=== PATIENT | male | born 1940 | race Caucasian/White ===

== ENCOUNTER 2021-10-22 07:49 | Day surgery (SDC) | payer OTHER ==
[~2021-10-22 07:49] MED LIST: CLINDAMYCIN INJ 900 MG in NA CHLORIDE 0.9% 50 ML IV ONE
[2021-10-22] MEDS ORDERED: Ringers Lactate 1,000 ML IV ONE (07:57)
[2021-10-22] MEDS ORDERED: BSS OPTHALMIC SOL 15 ML OPTH ONE (08:49)
[2021-10-22] MEDS ORDERED: LIDOCAINE 1% W/EPI 1:100,000 10 ML VIAL ONE (08:49)
[2021-10-22] MEDS ORDERED: CHLORHEXIDINE 0.12% 473ML BOT MM ONE (08:50)
[2021-10-22] MEDS ORDERED: LIDOCAINE JELLY 2%- 5 ML TUBE ONE (09:03)
[2021-10-22] MEDS ORDERED: OXYMETAZOLINE HCL 0.05% 15ML NAS ONE (09:08)
[2021-10-22] MEDS ORDERED: KETOROLAC 30 MG/ML INJ ONE (09:43)
[2021-10-22] MEDS ORDERED: dexAMETHasone 10 MG/ML VIAL ONE (09:43)
[2021-10-22] MEDS ORDERED: ONDANSETRON 4 MG/2 ML VIAL ONE (09:47)
[2021-10-22] MEDS ORDERED: EPHEDRINE SULF 50 MG/ML VIAL ONE (09:50)
[2021-10-22] MEDS ORDERED: NS 0.9% VIAL 10 ML ONE (09:51)
[2021-10-22] MEDS ORDERED: GLYCOPYRROLATE 0.2 MG/ML SYR ONE (10:14)
[2021-10-22] MEDS ORDERED: NEOSTIGMINE 1 MG/ML -10 ML VIAL ONE (10:15)
[2021-10-22] MEDS ORDERED: BACITRACIN OINTMENT 14 GM TUBE TOP ONE (10:57)
[2021-10-22 14:02] VITALS: BP 147/66; TEMP 96.8; O2SAT 97
--- NOTE | 2021-10-22 23:00 | OP ---
Date of Procedure: 10/22/2021 Surgeon: JENNY SOLOMON Preoperative Diagnoses: 1.Lower lip defect. 2.History of squamous cell carcinoma of lower lip. Postoperative Diagnoses: 1.Lower lip defect. 2.History of squamous cell carcinoma of lower lip. Procedures: 1.Full thickness excision of lower lip wound. 2.Complex closure of lip (full thickness measuring greater than two thirds vertical height). Anesthesia: General. Iv Fluids: 500. Ebl: 25. Urine Output: Not recorded. Indications: Mr. Yates is an 81-year-old male with history of multiple cutaneous cancers. 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 He underwe nt Mohs excision of the defect resulting in a partial thickness 40% defect of the lower lip encompass ing the dry vermilion as well as partial thickness orbicularis brittney. We discussed reconstruction of said defect. We discussed various options for closure, but ultimately the decision would have to be made intraoperatively based on soft tissue compliance. However, we discussed a completion full thick ness excision of 40% of his lower lip and primary closure. This would allow for the most aesthetic r esult as well as functional repair. He was made well aware of the risks and benefits of the procedur e including, but not limited to bleeding, infection, injury to surrounding structures, scarring, asym metry, overcorrection, undercorrection, functional imbalance, and need for additional procedures. Af ter thorough discussion of the risks and benefits, the patient was deemed an appropriate surgical can didate. Procedure In Detail: After written consent, the patient was marked in the preoperative holding area. He was then taken to the operating room. Pressure points were padded. SCDs were turned on. The p atient was then nasotracheally intubated. The bed was turned 90 degrees. The mouth and teeth were b rushed with Peridex and the wound cleaned with saline. The face was then prepped and draped in the u sual fashion. The lower lip defect was measured. It was approximately 5 cm in width involving the d ry and wet vermilion as well as partial thickness orbicularis brittney. The lower lip vertical complianc e was assessed. He had a relatively wide and long lip and based on soft tissue approximation there w as enough length in my opinion to accommodate a complete excision and closure. Thus the decision was made at that point to proceed with a wedge excision. The wedge was marked on the cutaneous and muco alessandro surfaces and local was then infiltrated into the excision sites as well as mental nerve blocks. After approximately 10 minutes had elapsed, the premarked segment was excised full thickness with car e to electrocauterize the inferior labial artery. After hemostasis was achieved, it was then irrigat ed. It was then closed in layers, the mucosa was closed first with 4-0 Vicryl up to the wet-dry junc tion. Then the orbicularis brittney was undermined 2 cm on each surface to allow for adequate muscle bit es. This was accomplished with 3-0 Monocryl along the whole vertical length of the orbicularis brittney. Next, the cutaneous skin was aligned with 3-0 Monocryl and a small standing cone was excised in the submental crease. Next, the white wall was aligned. There was a small dry vermilion irregularity, which was trimmed to allow for even soft tissue approximation. The dry vermilion was approximated wi th 5-0 Vicryl and the cutaneous skin was closed with interrupted 5-0 Prolene. He was then cleaned an d dried. The throat pack was then removed. The patient tolerated the procedure well. All instrumen t counts and laparotomy pads were accounted for by the end of the procedure. Complications: None. Disposition: To PACU then home. He will be seen in 5 days in my office. ACE Voice ID: [id number] Report ID: [id number]
== END 2021-10-22 12:23 | disposition home or self-care (01) ==
LOC: OR 07:49
PROVIDERS: ATTEND Plastic Surgery
PROC: 0JB10ZZ Excision of Face Subcutaneous Tissue and Fascia, Open Approach (ICD-10-PCS; principal; 2021-10-22 09:00)
DX: S01.501A Unspecified open wound of lip, initial encounter (principal); I10 Essential (primary) hypertension; Z20.822 Contact with and (suspected) exposure to COVID-19; Z85.828 Personal history of other malignant neoplasm of skin; Z85.819 Personal history of malignant neoplasm of unspecified site of lip, oral cavity, and pharynx
CPT/HCPCS: 40530; U0003; J2710; J1100; J7120; J2405

== ENCOUNTER → 2023-09-11 | Emergency (ER) | payer OTHER ==
[~2023-09-11] MED LIST changes: -CLINDAMYCIN INJ 900 MG in NA CHLORIDE 0.9% 50 ML IV ONE; +NA CHLORIDE 0.9% 1,000 ML ONE
--- NOTE | 2023-09-11 12:28 | RAD REPORT ---
EXAM DESCRIPTION: CT - Head Brain Wo Cont - 09/11/2023 12:11 pm CLINICAL HISTORY: LE weakness, fatigue Headache, drowsiness COMPARISON: No comparisons TECHNIQUE: All CT scans are performed using dose optimization technique as appropriate and may inclu de automated exposure control or mA/KV adjustment according to patient size. FINDINGS: No intracranial hemorrhage, hydrocephalus or extra-axial fluid collection.Moderate diffuse brain atrophy present.No areas of brain edema or evidence of midline shift. The paranasal sinuses and mastoids are clear the for trace fluid in the right maxillary antrum. The c alvarium is intact. Right-sided phthisis bulbi. IMPRESSION: No acute intracranial abnormality.
--- NOTE | 2023-09-11 12:38 | RAD REPORT ---
EXAM DESCRIPTION: Brenda Single View09/11/2023 12:29 pm CLINICAL HISTORY: cough COMPARISON: 2020 FINDINGS: The lungs appear clear of acute infiltrate. The heart is mildly enlarged IMPRESSION: No acute abnormalities displayed
[2023-09-11 12:55] LABS: Absolute Lymphocytes (CBC) 0.9 K/uL (0.7-4.9); Absolute Neutrophil 2.4 K/uL (1.8-8.0); Basophils % 0.6 % (0-1.3); Eosinophils % 0.5 % (0-4.4); Hematocrit 41.1 % (39.6-49.0); Lymphocytes % 21.3 % (15.3-44.8); MCH 31.9 pg (27.0-35.0); MCHC 34.1 g/dL (32.0-36.0); MCV 93.6 fL (80-100); MPV 7.6 fL (7.6-11.3); Monocytes % 22.7 % (3.3-12.3); Neutrophils % 54.9 % (41.7-73.7); Nucleated Red Blood Cells % 0.2 % (0-0); Platelets 109 thou/uL (152-406); RBC Red Blood Cell Count 4.39 M/uL (4.33-5.43); Red Cell Distribution Width 13.8 % (12.1-15.2)
[2023-09-11 12:57] LABS: PT Prothrombin Time 13.3 SECONDS (9.5-12.5); Protime INR 1.22
[2023-09-11 13:00] LABS: Albumin 3.4 g/dL (3.4-5.0); Albumin/Globulin Ratio 0.9 (1.1-1.8); Anion Gap 10.9 mEq/L (5.0-15.0); Bilirubin Direct 0.4 mg/dL (0-0.2); Bilirubin Indirect, Calculated 0.9 mg/dL (0.2-0.8); Bilirubin Total 1.3 mg/dL (0.2-1.0); Globulin 3.8 g/dL (2.3-3.5); Magnesium 2.1 mg/dL (1.6-2.4); Potassium 3.9 mEq/L (3.5-5.1); Protein, Total 7.2 g/dL (6.4-8.2)
[2023-09-11 13:30] LABS: Specific Gravity 1.018 (1.005-1.030); Sqamous Epithelial None Seen /HPF (None Seen); Urine Bacteria <20 /HPF (<20); Urine Bilirubin NEGATIVE (Negative); Urine Blood Negative (Negative); Urine Clarity Turbid (Clear); Urine Color Yellow (Yellow); Urine Culture Reflex Order NOT NEEDED; Urine Glucose NEGATIVE (Negative); Urine Ketones TRACE (Negative); Urine Micro Reflex YN NO BILL MICROSCOPIC; Urine Mucus 2+ /HPF (None Seen); Urine Nitrite NEGATIVE (Negative); Urine Protein TRACE (Negative); Urine RBC <5 /HPF (None Seen); Urine Urobilinogen Normal (Normal); Urine WBC <5 /HPF (<5)
[2023-09-11 13:47] LABS: Blood Morphology Comment NOT SEEN (NOT SEEN); Platelet Estimate ADEQ; White Blood Cell Scan OK (OK)
--- NOTE | 2023-09-11 14:08 | EDPHYS ---
Physician Documentation [facility] Name: Xavier Yates Age: 83 yrs Sex: Male : 1940 Arrival Date: 09/11/2023 Time: 11:06 Bed 7 Private MD: ED Physician Yocasta Mcmillan HPI: 09/10 12:16 This 83 yrs old Male presents to ER via Ambulatory with complaints of lower leg sp3 weakness, cough and fatigue. 12:16 83-year-old male with a history of hypertension, hearing loss now presents to the ED sp3 with chief complaint generalized weakness with lower extremity weakness bilaterally requiring a cane for ambulation and dry cough for 3 to 4 days. Patient states he has been weak and decreased urine output and decreased p.o. intake. He denies any fever, headache, chest pain, back pain, dysuria, vomiting or diarrhea, or any other signs or symptoms on ROS at this time.. 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 - Social history:: Smoking status: Patient denies any tobacco usage or history of. ROS: 12:17 Constitutional: Negative for fever, chills, and weight loss, Eyes: Negative for injury, sp3 pain, redness, and discharge, Neck: Negative for injury, pain, and swelling, Cardiovascular: Negative for chest pain, palpitations, and edema, Abdomen/GI: Negative for abdominal pain, nausea, vomiting, diarrhea, and constipation, : Negative for injury, bleeding, discharge, and swelling, MS/Extremity: Negative for injury and deformity, Skin: Negative for injury, rash, and discoloration, Allergy/Immunology: Negative for hives, rash, and allergies, Endocrine: Negative for neck swelling, polydipsia, polyuria, polyphagia, and marked weight changes, Hematologic/Lymphatic: Negative for swollen nodes, abnormal bleeding, and unusual bruising, 12:17 All other systems are negative, Exam: 12:17 Constitutional: This is a well developed, well nourished patient who is awake, alert, sp3 and in no acute distress. Head/Face: Normocephalic, atraumatic. Eyes: Pupils equal round and reactive to light, extra-ocular motions intact. Lids and lashes normal. Conjunctiva and sclera are non-icteric and not injected. Cornea within normal limits. Periorbital areas with no swelling, redness, or edema. ENT: Nares patent. No nasal discharge, no septal abnormalities noted. External auditory canals are clear. Oropharynx with no redness, swelling, or masses, exudates, or evidence of obstruction, uvula midline. Mucous membranes moist. Neck: Trachea midline, no thyromegaly or masses palpated, and no cervical lymphadenopathy. Supple, full range of motion without nuchal rigidity, or vertebral point tenderness. No Meningismus. Chest/axilla: Normal chest wall appearance and motion. Nontender with no deformity. No lesions are appreciated. Cardiovascular: Regular rate and rhythm with a normal S1 and S2. No gallops, murmurs, or rubs. Normal PMI, no JVD. No pulse deficits. Abdomen/GI: Soft, non-tender, with normal bowel sounds. No distension or tympany. No guarding or rebound. No evidence of tenderness throughout. Back: No spinal tenderness. No costovertebral tenderness. Full range of motion. Skin: Warm, dry with normal turgor. Normal color with no rashes, no lesions, and no evidence of cellulitis. MS/ Extremity: Pulses equal, no cyanosis. Neurovascular intact. Full, normal range of motion. Psych: Awake, alert, with orientation to person, place and time. Behavior, mood, and affect are within normal limits. 12:17 Respiratory: Mild dry cough noted. No wheezing rales or rhonchi noted., 12:17 Musculoskeletal/extremity: Globally weak without any focal neurological deficits.. 14:19 ECG was reviewed by the Attending Physician. EKG demonstrates normal sinus rhythm at 73 sp3 bpm with normal intervals, normal QRS, slightly leftward axis nonspecific diffuse ST's ST changes without evidence of acute ischemia. Vital Signs: 11:18 BP 103 / 67; Pulse 81; Resp 18; Temp 98(O); Pulse Ox 95% on R/A; Weight 95.25 kg; mb9 Height 6 ft. 0 in. ; Pain 0/10; 14:16 BP 146 / 94; Pulse 99; Resp 15; Pulse Ox 100% ; ko1 15:02 BP 138 / 84; Pulse 86; Resp 15; Pulse Ox 99% ; ko1 11:18 Body Mass Index 28.48 (95.25 kg, 182.88 cm) mb9 11:18 Pain Scale: Adult mb9 MDM: 11:20 Patient medically screened. sp3 12:18 Data reviewed: vital signs, nurses notes, lab test result(s), EKG, radiologic studies. sp3 ED course: 83-year-old male with generalized weakness and cough. Very vague symptoms. Wide variety of differential diagnoses exist including pneumonia, bronchitis, electrolyte abnormality, dehydration, ACS, UTI, TIA/CVA spectrum, viral syndrome, among others. Workup will be broad and will include EKG, chest x-ray, CT scan of the head, laboratory values, urine analysis, and general observation. Likely admission pending workup and patient course.. 14:04 ED course: All workup is negative other than mild bump in creatinine. 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 intake and has had decreased urine output. He acknowledges that he needs to be taking more electrolytes and oral hydration. At this time we will give 1 L normal saline and then discharge patient home on Zithromax and Tessalon Perles for prophylactic bronchitis treatment. There is no infiltrate or pneumonia on his chest x-ray. He is not in CHF. And I do not believe he has a pulmonary embolism. Follow-up with PCP as needed.. 09/10 11:59 Order name: Basic Metabolic Panel; Complete Time: 13:55 09/10 11:59 Order name: CBC with Diff; Complete Time: 13:55 09/10 11:59 Order name: LFT's; Complete Time: 13:55 09/10 11:59 Order name: Magnesium; Complete Time: 13:55 09/10 11:59 Order name: NT PRO-BNP; Complete Time: 13:55 09/10 11:59 Order name: PT-INR; Complete Time: 13:55 09/10 11:59 Order name: Troponin HS; Complete Time: 13:55 09/10 12:19 Order name: UAM; Complete Time: 13: sp09/10 13:04 Order name: CBC Smear Scan; Complete Time: 13:55 EDMS 09/10 11:59 Order name: XRAY Chest (1 view); Complete Time: 12:42 sp3 09/10 11:59 Order name: CT Head Brain wo Cont; Complete Time: 12:42 sp3 09/10 11:59 Order name: EKG; Complete Time: 11:59 sp3 09/10 11:59 Order name: Cardiac monitoring; Complete Time: 12:19 sp3 09/10 11:59 Order name: EKG - Nurse/Tech; Complete Time: 12:32 sp3 09/10 11:59 Order name: IV Saline Lock; Complete Time: 12:30 sp3 09/10 11:59 Order name: Labs collected and sent; Complete Time: 12:30 sp3 09/10 11:59 Order name: O2 Per Protocol; Complete Time: 12:19 sp3 09/10 11:59 Order name: O2 Sat Monitoring; Complete Time: 12:19 sp3 09/10 12:19 Order name: Cath: If unable to give Urine specimen in 30 mins; Complete Time: 13:06 sp3 Administered Medications: 14:14 Drug: NS 0.9% IV 1000 ml IV at 1 bolus Per protocol; 1000 mL bolus Route: IV; Rate: 1 ko1 bolus; Site: right antecubital; 15:16 Follow up: Response: No adverse reaction; IV Status: Completed infusion; IV Intake: ko1 1000ml Disposition Summary: 09/11/23 14:07 Discharge Ordered Notes: Location: Home sp3 Condition: Stable sp3 Diagnosis - Dehydration, renal insufficiency, bronchitis sp3 Followup: sp3 - With: Private Physician - When: Upon discharge from the Emergency Department - Reason: Continuance of care Discharge Instructions: - Discharge Summary Sheet sp3 - Dehydration, Adult sp3 - Cough, Adult sp3 Forms: - Medication Reconciliation Form sp3 - Thank You Letter sp3 - Antibiotic Education sp3 - Prescription Opioid Use sp3 - Patient Portal Instructions sp3 - Leadership Thank You Letter sp3 Prescriptions: - Tessalon Perles 100 mg Oral Capsule - take 1 capsule ORAL route every 8 hours As needed; 15 capsule; Refills: 0, sp3 Product Selection Permitted - Zithromax Z-Dae 250 mg Oral Tablet - take 1 tablet ORAL route as directed for 5 days Day 1 - take two (2) tablets sp3 one time. Day 2, 3, 4 , 5 take one (1) tablet once daily.; 6 tablet; Refills: 0, Product Selection Permitted Signatures: Dispatcher [employer] Yocasta Denise MD MD sp3 Margo Jaffe RN RN ko1 Neena Barrow RN RN mb9 Corrections: (The following items were deleted from the chart) 11:20 PMHx: Hyperthyroidism; mb9 mb9 11:20 PSHx: None; mb9 mb9
--- NOTE | 2023-09-11 14:08 | ER ---
Nurse's Notes [facility] Name: Xavier Yates Age: 83 yrs Sex: Male : 1940 Arrival Date: 09/11/2023 Time: 11:06 Bed 7 Private MD: Diagnosis: Dehydration, renal insufficiency, bronchitis Presentation: 09/10 11:18 Chief complaint: Spouse and/or significant other states: "Monday, he had a persistent mb9 cough. Monday, he had a fever of 102, diarrhea, urinating often, and his legs were weak to where he couldn't walk.". Coronavirus screen: Vaccine status: Patient reports receiving the 2nd dose of the covid vaccine. Ebola Screen: No symptoms or risks identified at this time. Initial Sepsis Screen: Does the patient meet any 2 criteria? No. Patient's initial sepsis screen is negative. Does the patient have a suspected source of infection? No. Patient's initial sepsis screen is negative. Risk Assessment: Do you want to hurt yourself or someone else? Patient reports no desire to harm self or others. Onset of symptoms was September 11, 2023. 11:18 Method Of Arrival: Ambulatory mb9 11:18 Acuity: MATTHEW 3 mb9 Triage Assessment: 11:21 General: Appears in no apparent distress. Behavior is calm, cooperative. Pain: Denies mb9 pain. EENT: No signs and/or symptoms were reported regarding the EENT system. EENT: Reports nasal congestion. Neuro: Level of Consciousness is awake, alert, obeys commands, Oriented to person, place, time, situation, Appropriate for age. Neuro: Reports weakness. Cardiovascular: Patient's skin is warm and dry. Respiratory: Reports cough that is Airway is patent Respiratory effort is even, unlabored, Respiratory pattern is regular, symmetrical. GI: Reports diarrhea. : Reports urinary frequency. Derm: Skin is pink, warm \\T\\ dry. Musculoskeletal: Range of motion: intact in all extremities. 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 - Social history:: Smoking status: Patient denies any tobacco usage or history of. Screenin:16 [facility] ED Fall Risk Assessment (Adult) History of falling in the last 3 months, ko1 including since admission No falls in past 3 months (0 pts) Confusion or Disorientation No (0 pts) Intoxicated or Sedated No (0 pts) Impaired Gait Yes (1 pt) Mobility Assist Device Used Yes (1 pt) Altered Elimination No (0 pt) Score/Fall Risk Level 0 - 2 = Low Risk Oriented to surroundings, Maintained a safe environment, Educated pt \\T\\ family on fall prevention, incl call for assistance when getting out of bed, Assessed \\T\\ reinforced patient's understanding of fall precautions, Provided non-skid footwear, Hourly rounding (assess needs \\T\\ fall precautionary measures) done, Used ambulatory aids as needed (educated on \\T\\ assisted with), Used gait belt as appropriate. Abuse screen: Denies threats or abuse. Denies injuries from another. Nutritional screening: No deficits noted. Tuberculosis screening: No symptoms or risk factors identified. Assessment: 11:20 General: Appears in no apparent distress. ill, Behavior is calm, cooperative, ko1 appropriate for age. 13:16 Pain: Denies pain. Neuro: No deficits noted. Cardiovascular: No deficits noted. ko1 Respiratory: No deficits noted. GI: No deficits noted. : Reports urinary frequency. EENT: No deficits noted. EENT: Parent/caregiver reports the patient having decreased hearing chronic. Derm: No deficits noted. Musculoskeletal: Parent/caregiver report the patient having weakness in right leg and left leg. 14:18 Reassessment: awaiting IVF to infuse before discharging patient. ko1 Vital Signs: 11:18 BP 103 / 67; Pulse 81; Resp 18; Temp 98(O); Pulse Ox 95% on R/A; Weight 95.25 kg; mb9 Height 6 ft. 0 in. ; Pain 0/10; 14:16 BP 146 / 94; Pulse 99; Resp 15; Pulse Ox 100% ; ko1 15:02 BP 138 / 84; Pulse 86; Resp 15; Pulse Ox 99% ; ko1 11:18 Body Mass Index 28.48 (95.25 kg, 182.88 cm) 9 11:18 Pain Scale: Adult mb9 ED Course: 11:12 Patient arrived in ED. im 11:19 Yocasta Mcmillan MD is Attending Physician. sp3 11:20 Triage completed. mb9 11:20 Arm band placed on. mb9 11:44 Carlos Eduardo Powers, RN is Primary Nurse. bp 12:12 CT Head Brain wo Cont In Process Unspecified. EDMS 12:30 Basic Metabolic Panel Sent. ko1 12:30 CBC with Diff Sent. ko1 12:30 LFT's Sent. ko1 12:30 Magnesium Sent. ko1 12:30 NT PRO-BNP Sent. ko1 12:30 PT-INR Sent. ko1 12:30 Troponin HS Sent. ko1 12:30 Inserted saline lock: 20 gauge in right antecubital area, using aseptic technique. ko1 Blood collected. 12:30 Initial lab(s) drawn, by me, sent to lab. ko1 12:31 XRAY Chest (1 view) In Process Unspecified. EDMS 12:33 Patient has correct armband on for positive identification. Placed in gown. Bed in low ko1 position. Call light in reach. Side rails up X2. Provided Education on: na. Client placed on continuous cardiac and pulse oximetry monitoring. NIBP monitoring applied. school lunch monitor on. Door closed. Noise minimized. Lights dimmed. Warm blanket given. 13:06 UAM Sent. bp 13:07 Urine collected: clean catch specimen, clear. ko1 13:16 No provider procedures requiring assistance completed. ko1 15:02 IV discontinued, intact, bleeding controlled, No redness/swelling at site. Pressure ko1 dressing applied. Administered Medications: 14:14 Drug: NS 0.9% IV 1000 ml IV at 1 bolus Per protocol; 1000 mL bolus Route: IV; Rate: 1 ko1 bolus; Site: right antecubital; 15:16 Follow up: Response: No adverse reaction; IV Status: Completed infusion; IV Intake: ko1 1000ml Medication: 13:16 VIS not applicable for this client. ko1 Intake: 15:16 IV: 1000ml; Total: 1000ml. ko1 Outcome: 14:07 Discharge ordered by . sp3 15:11 Discharged to home ambulatory, ko1 15:17 Condition: improved ko1 15:17 Discharge instructions given to patient, family, Instructed on discharge instructions, follow up and referral plans. medication usage, Demonstrated understanding of instructions, follow-up care, medications, Prescriptions given X 2, 15:17 Patient left the ED. ko1 Signatures: Dispatcher [employer] EDCarlos Eduardo Hilton, RN RN bp Yocasta Mcmillan MD MD sp3 Margo Jaffe RN RN ko1 Neena Barrow RN RN mb9 Alda Garcia Corrections: (The following items were deleted from the chart) 11: 11:18 Pulse 81bpm; Resp 18bpm; Pulse Ox 95% RA; Temp 98F Oral; 95.25 kg; Height 6 ft. 0 mb9 in.; BMI: 28.4; Pain 0/10, Adult; 9 11: 11:20 PMHx: Hyperthyroidism; mb9 9 11:21 11:20 PSHx: None; mb9 9
[2023-09-11 15:46] VITALS: BP 138/84; TEMP 98; O2SAT 99
--- NOTE | 2023-09-12 17:05 | EKG ---
Test Date: 2023-09-11 Test Time: 12:22:48 Dehydration Plant Operator: HI MEASUREMENT RESULTS: Intervals: Rate: 73 RI: 170 QRSD: 100 QT: 384 QTc: 423 [place]: P: 41 RI: 170 QRS: -57 T: 18 INTERPRETIVE STATEMENTS: Normal sinus rhythm Low voltage QRS Left anterior fascicular block Septal infarct, age undetermined Abnormal ECG Compared to ECG 07/19/2017 02:14:09 Low QRS voltage now present Myocardial infarct finding still present Electronically Signed On 09-12-23 17:01:24 CDT by Arian Tom
== END ==
LOC: ER 11:06
DX: E86.0 Dehydration (principal); J40 Bronchitis, not specified as acute or chronic; N28.9 Disorder of kidney and ureter, unspecified; I10 Essential (primary) hypertension
CPT/HCPCS: 93005; 85025; 81001; 80048; 36415; 83735; 85610; 80076; 84484; 83880; 70450; 71045; J7030; 96360; 99285

== ENCOUNTER 2025-01-23 14:49 | Emergency (ER) | payer OTHER ==
--- OUTSIDE RECORDS SUMMARY | 2025-01-23 15:06 | XMS REPORT | Continuity of Care Document ---
Author Name Unknown Address [address] [facility] [address] [place] [address] Organization [facility] [place] Address [address] [facility] [address] [place] [address] Care Team Providers Care Talent Development Specialist Name Role Phone Javier Willoughby Primary Care Physician Unavailable Joe Gavin Attending Clinician Unavailable JOVAN SOLIMAN Attending Clinician Unavailable Joe Gavin Admitting Clinician Unavailable JOVAN SOLIMAN Admitting Clinician Unavailable Payers Payer Name Policy Type Policy Number Effective Date Expirati on Date Source Problems Condition Name Condition Details Condition Category Status Onset Date Resolution Date Last Treatment Date Treating Clinician Comments Source Esophageal obstructio n due to food impaction Esophageal obstructio n due to food impaction Disease Active 07-19 00:00: 00 [facility] Dysphagia Dysphagia Disease Active 07-19 00:00: 00 [facility] Allergies, Adverse Reactions, Alerts Allergy Name Allergy Type Status Severity Reaction(s) Onset Date Inactive Date Treating Clinician Comments Source No Known Allergie s DA Active U 02-14 00:00: 00 [facility] Social History Social Habit Start Date Stop Date Quantity Comments Source History of tobacco use Current smoker [facility] History SDOH Alcohol Frequency [facility] History SDOH Alcohol Std Drinks [facility] History SDOH Alcohol Binge [facility] Sexual orientation [facility] Sex 2017-07-19 03:16:08 2017-07-19 03:16:08 Male (finding) [facility] Tobacco use and exposure 2017-07-19 00:00:00 2017-07-19 00:00:00 Smokeless tobacco non-user [facility] Alcohol intake 2017-07-19 00:00:00 2017-07-19 00:00:00 Current drinker of alcohol (finding) [facility] Alcoholic beverage intake 2017-07-19 00:00:00 2017-07-19 00:00:00 Current drinker of alcohol (finding) [facility] Tobacco Comment 2017-07-19 00:00:00 2017-07-19 00:00:00 Quite 40 years ago [facility] Alcohol Comment 2017-07-19 00:00:00 2017-07-19 00:00:00 Social [facility] Sex assigned at 1940 00:00:00 1940 00:00:00 [facility] Smoking Status Start Date Stop Date Source Ex-smoker 2017-07-19 00:00:00 2017-07-19 00:00:00 [facility] Encounters Start Date/Time End Date/Time Encounter Type Admission Type Attending [facility] Care Facility Care Department Encounter ID Source 2024-02-17 05:16:00 2024-02-18 14:30:00 Inpatient Joe Cha [facility] MEDI.01 [id number] 80 [facility] Results Test Description Test Time Test Comments Results Result Co mments Source CBC W/AUTO [id number] 09:06:00* Test Item Value Reference Range Interpretation Comme nts WHITE BLOOD CELL (test code = WBC) 6.7 K/mm3 3.5-11.0 N RED BLOOD CELL (test code = RBC) 3.94 M/mm3 4.70-6.10 L HEMOGLOBIN (test code = HGB) 12.2 G/DL 12.3-15.9 L HEMATOCRIT (test code = HCT) 34.9 % 35.8-46.7 L MEAN CELL VOLUME (test code = MCV) 88.6 Fl 86.3-98.9 N MEAN CELL HGB (test code = MCH) 31.0 pg 28.9-34.4 N MEAN CELL HGB CONCETRATION (test code = MCHC) 35.0 G/DL 32.1-34.5 H RED CELL DISTRIBUTION WIDTH (test code = RDW) 12.8 SD 11.5-14.5 N PLATELET COUNT (test code = PLT) 125 K/mm3 150-450 L MEAN PLATELET VOLUME (test c ode = MPV) 9.30 fL 7.0-9.6 N NEUTROPHIL % (test code = NT%) 67.5 % 40-76 IMMATURE GRANULOCYTE % (test code = IG%) 1.6 % 0.0-5.0 N LYMPHOCYTE % (test code = LY%) 19.1 % 20.5-51.1 L MONOCYTE % (test code = MO%) 7.8 % 1.7-9.3 N EOSINOPHIL % (test code = EO%) 3.1 % 0.0-6.0 N BASOPHIL % (test code = BA%) 0.9 % 0.0-2.0 N NUCLEATED RBC % (test code = NRBC%) 0.0 /100WBC% 0.0-1.0 N NEUTROPHIL # (test code = NT#) 4.5 K/mm3 1.8-7.6 N IMMATURE GRANULOCYTE # (test code = IG#) 0.11 x10 3/uL 0.00-0.03 H LYMPHOCYTE # (test code = LY#) 1.3 K/mm3 0.6-3.0 N MONOCYTE # (test code = MO#) 0.5 K/mm3 0.2-1.5 N EOSINOPHIL # (test code = EO#) 0.2 K/mm3 0.0-0.4 N BASOPHIL # (test code = BA#) 0.1 K/mm3 0.0-0.2 N NUCLEATED RBC # (test code = NRBC#) 0.0 K/mm3 0.00-0.01 N MANUAL DIFF REQUIRED (test c ode = MDIFF) NO DIFF/SCN CRITERIA COAGULATION TIME [id number] 08:47:00* Test Item Value Reference Range Interpretation Comme nts COAGULATION TIME ACTIVATED ( test code = ACT) 276 SEC 110-182 H COAGULATION TIME [id number] 07:31:00* Test Item Value Reference Range Interpretation Comme nts COAGULATION TIME ACTIVATED ( test code = ACT) 236 SEC 110-182 H [id number] 06:17:00* Test Item Value Reference Range Interpretation Comme nts MAGNESIUM (test code = MAG) 2.1 MG/DL 1.8-2.4 N COMPREHENSIVE METABOLIC [id number] 06:17:00* Test Item Value Reference Range Interpretation Comme nts SODIUM (test code = NA) 140 mmol/L 136-145 N POTASSIUM (test code = K) 4.0 mmol/L 3.4-5.0 N CHLORIDE (test code = CL) 103 mmol/L 98-107 N CARBON DIOXIDE (test code = CO2) 28 mmol/L 21-32 N ANION GAP (test code = GAP) 9 GAP calc 4-15 N GLUCOSE (test code = GLU) 114 MG/DL 70-110 H BLOOD UREA NITROGEN (test code = BUN) 17 MG/DL 7-18 N GLOMERULAR FILTRATION RATE (test code = GFR) 55 estGFR >60 L The Glomerular Filtration Rate is a calculated parameterbased on serum Creatinine, patient age and sex. GFR valuesless than 60 mL/min/1.73 square meters are indicative ofChronic Kidney Disease. Values less than 15 mL/min/1.73square meters indicate Kidney failure. The calculation forGFR is based on the CKD-EPI (2020) calculation. This formulais race indifferent and is the recommended formula for GFRby the National Kidney Foundation for Adults.The GFR will not calculate if the sex is unknown or if thepatient's age is <18 years. CREATININE (test code = CREAT) 1.3 MG/DL 0.6-1.0 H TOTAL PROTEIN (test code = PROT) 7.3 G/DL 6.4-8.2 N ALBUMIN (test code = ALB) 3.8 G/DL 3.4-5.0 N GLOBULIN (test code = GLOB) 3.5 GM/dL ALBUMIN/GLOBULIN RATIO (test code = A/G) 1.1 RATIO 1.2-2.2 L CALCIUM (test code = CA) 8.8 MG/DL 8.5-10.1 N BILIRUBIN TOTAL (test code = BILT) 0.6 MG/DL 0.0-1.0 N SGOT/AST (test code = AST) 18 Unit/L 15-37 N SGPT/ALT (test code = ALT) 27 Unit/L 30-65 L ALKALINE PHOSPHATASE TOTAL (test code = ALKP) 71 Unit/L 50-136 N LIPID PROFILE (CORONARY RISK)2024-02-17 06:17:00* Test Item Value Reference Range Interpretation Comme nts TRIGLYCERIDES (test code = TRIG) 193 MG/DL 0-150 H CHOLESTEROL (test code = CHOL) 192 MG/DL 133-200 N CHOLESTEROL/HDL RATIO (test code = CHOLHDL) 3.31 RATIO See_Comment RISK ASSOC IATED WITH CHOL/HDL RATIOS: RISK MALE FEMALE1/2 AVERAGE 3.43 3.27AVERAGE 4.97 4.442X AVERAGE 9.55 7.053X AVERAGE 23.39 11.04 NOTE THAT THE REFERENCE VALUE IS RELATED TO RISK LEVELS ASRECOMMENDED BY THE [facility]. [Automated message] The system which generated this result transmitted reference range: 0-. The reference range was not used to interpret this result as normal/abnormal. HDL CHOLESTEROL (test code = HDL) 58 MG/DL See_Comment L [Automated [employer]] The system which generated this result transmitted reference range: 60-. The reference range was not used to interpret this result as normal/abnormal. NON-HDL CHOLESTEROL (test code = NHDL) 134 mg/dL <130 H LIPOPROTEIN LDL (test code = LDL) 98 MG/DL 0-129 N LDL/HDL (test code = LDL/HDL) 1.68 Ratio See_Comment N [Automated [employer]] The system which generated this result transmitted reference range: 1.48-3.22 Avg. The reference range was not used to interpret this result as normal/abnormal. PROTHROMBIN [id number] 06:06:00* Test Item Value Reference Range Interpretation Comme nts PT PATIENT (test code = PTP) 11.2 SECONDS 9.3-12.9 N INTERNATIONAL NORMAL RATIO (test code = INR) 1.00 INR Unit 0.8-1.2 N TARGET INR BY INDICATION Indication INR1. Prophylaxis of venous thrombosis 2.0 - 3.0 (orthopedic surgery), Prophylaxis of venous thrombosis (other than high-risk surgery), Treatment of Deep Vein Thrombosis/Pulmonary Embolism, Prevention of systemic embolism - Tissue heart valves, Acute Myocardial Infarction (to prevent systemic embolism), Valvular heart disease, Acute Myocardial Infarction (to prevent systemic embolism), Valvular heart disease, Atrial Fibrillation, Bileaflet mechanical valve in aortic position.2. Mechanical prosthetic valves (high risk), 2.5 - 3.5 Presence of Lupus Anticoagulant or Antiphospholipid Antibodies, Prevention of systemic embolism - Acute Myocardial Infarction (to prevent recurrent infarct). THROMBOPLASTIN TIME [id number] 06:06:00* Test Item Value Reference Range Interpretation Comme nts THROMBOPLASTIN TIME PARTIAL (test code = PTT) 35.2 SECONDS 26-35 H CBC W/AUTO [id number] 05:56:00* Test Item Value Reference Range Interpretation Comme nts WHITE BLOOD CELL (test code = WBC) 4.9 K/mm3 3.5-11.0 N RED BLOOD CELL (test code = RBC) 4.29 M/mm3 4.70-6.10 L HEMOGLOBIN (test code = HGB) 13.5 G/DL 12.3-15.9 N HEMATOCRIT (test code = HCT) 39.0 % 35.8-46.7 N MEAN CELL VOLUME (test code = MCV) 90.9 Fl 86.3-98.9 N MEAN CELL HGB (test code = MCH) 31.5 pg 28.9-34.4 N MEAN CELL HGB CONCETRATION (test code = MCHC) 34.6 G/DL 32.1-34.5 H RED CELL DISTRIBUTION WIDTH (test code = RDW) 13.1 SD 11.5-14.5 N PLATELET COUNT (test code = PLT) 128 K/mm3 150-450 L MEAN PLATELET VOLUME (test c ode = MPV) 9.10 fL 7.0-9.6 N NEUTROPHIL % (test code = NT%) 49.1 % 40-76 N IMMATURE GRANULOCYTE % (test code = IG%) 0.2 % 0.0-5.0 N LYMPHOCYTE % (test code = LY%) 32.6 % 20.5-51.1 N MONOCYTE % (test code = MO%) 11.4 % 1.7-9.3 H EOSINOPHIL % (test code = EO%) 5.7 % 0.0-6.0 N BASOPHIL % (test code = BA%) 1.0 % 0.0-2.0 N NUCLEATED RBC % (test code = NRBC%) 0.0 /100WBC% 0.0-1.0 N NEUTROPHIL # (test code = NT#) 2.4 K/mm3 1.8-7.6 N IMMATURE GRANULOCYTE # (test code = IG#) 0.01 x10 3/uL 0.00-0.03 N LYMPHOCYTE # (test code = LY#) 1.6 K/mm3 0.6-3.0 N MONOCYTE # (test code = MO#) 0.6 K/mm3 0.2-1.5 N EOSINOPHIL # (test code = EO#) 0.3 K/mm3 0.0-0.4 N BASOPHIL # (test code = BA#) 0.1 K/mm3 0.0-0.2 N NUCLEATED RBC # (test code = NRBC#) 0.0 K/mm3 0.00-0.01 N TISSUE [id number] 11:57:00Surgical Pathology Report Case: [id number] Authorizing Provider: Benny Short MD Collected: 07/19/2017 1403 Ordering Location: [address] Received: 07/19/2017 1450 Service Pathologist: Ovi Elias MD Specimen: Esophagus, lower esophageal stricture A. ESOPHAGUS, LOWER ESOPHAGEAL STRICTURE, BIOPSY: - JUNCTIONAL MUCOSA WITH INTESTINAL METAPLASIA CONSISTENT WITH SHAIKH'S ESOPHAGUS - INFLAMED JUNCTIONAL MUCOSA WITH PROMINENT MUCOSAL EOSINOPHILIA - NEGATIVE FOR DYSPLASIA OR MALIGNANCY - SEE MICROSCOPIC DESCRIPTION Signing Pathologist Direct Phone Line: [phone] signed by Ovi Elias MD on 07/20/2017 at 11:57 AMClinical history of food impaction secondary to Schatzki's ring (per endoscopy note dated 07/19/17) is noted. The histologic features are compatible with the same (or) with reflux esophagitis. [id number] impactionLower esophageal stricture biopsyThe specimen is received in a formalin-filled container and labeled with the patient's information and labeled "lower esophageal stricture" consisting of four fragments of ceron tissue ranging from 0.1 to 0.4 cm, submitted A1. CG/pl Sections show squamo-columnar junctional mucosa with increased eosinophils (upto 20 in 2 HPFs) accompanied by increased neutrophils also involving the cardiac mucosa. Also noted are prominent basal cell hyperplasia, and congestion of the papillae. Few goblet cells are seen. There is no evidence of dysplasia or malignancy.BASIC METABOLIC [id number] 05:37:00* Test Item Value Reference Range Interpretation Comme nts SODIUM (BEAKER) (test code = 381) 139 meq/L 136-145 POTASSIUM (BEAKER) (test code = 379) 4.1 meq/L 3.5-5.1 CHLORIDE (BEAKER) (test code = 382) 109 meq/L 98-107 H CO2 (BEAKER) (test code = 355) 26 meq/L 22-29 BLOOD UREA NITROGEN (BEAKER) (test code = 354) 13 mg/dL 7-21 CREATININE (BEAKER) (test code = 358) 0.87 mg/dL 0.57-1.25 GLUCOSE RANDOM (BEAKER) (test code = 652) 91 mg/dL 70-105 CALCIUM (BEAKER) (test code = 697) 7.6 mg/dL 8.4-10.2 L EGFR (BEAKER) (test code = 1092) 85 mL/min/1.73 sq m ESTIMATED GFR IS NOT ACCURATE CREATININE CLEARANCE IN PREDICTING GLOMERULAR FILTRATION RATE. ESTIMATED GFR IS NOT APPLICABLE FOR DIALYSIS PATIENTS. [id number] 05:32:00* Test Item Value Reference Range Interpretation Comme nts MAGNESIUM (BEAKER) (test cod e = 627) 1.8 mg/dL 1.6-2.6 CBC W/PLT COUNT & AUTO [id number] 05:11:00* Test Item Value Reference Range Interpretation Comme nts WHITE BLOOD CELL COUNT (BEAK ER) (test code = 775) 5.3 K/ L 3.5-10.5 RED BLOOD CELL COUNT (BEAKER ) (test code = 761) 4.01 M/ L 4.63-6.08 L HEMOGLOBIN (BEAKER) (test co de = 410) 12.6 GM/DL 13.7-17.5 L HEMATOCRIT (BEAKER) (test co de = 411) 36.1 % 40.1-51.0 L MEAN CORPUSCULAR VOLUME (DAISHA KER) (test code = 753) 90.0 fL 79.0-92.2 MEAN CORPUSCULAR HEMOGLOBIN (BEAKER) (test code = 751) 31.4 pg 25.7-32.2 MEAN CORPUSCULAR HEMOGLOBIN CONC (BEAKER) (test code = 752) 34.9 GM/DL 32.3-36.5 RED CELL DISTRIBUTION WIDTH (BEAKER) (test code = 412) 13.2 % 11.6-14.4 PLATELET COUNT (BEAKER) (bernardino t code = 756) 138 K/CU MM 150-450 L MEAN PLATELET VOLUME (BEAKER ) (test code = 754) 9.6 fL 9.4-12.4 NUCLEATED RED BLOOD CELLS (BEAKER) (test code = 413) 0 /100 WBC 0-0 NEUTROPHILS RELATIVE PERCENT (BEAKER) (test code = 429) 59 % LYMPHOCYTES RELATIVE PERCENT (BEAKER) (test code = 430) 27 % MONOCYTES RELATIVE PERCENT (BEAKER) (test code = 431) 9 % EOSINOPHILS RELATIVE PERCENT (BEAKER) (test code = 432) 4 % BASOPHILS RELATIVE PERCENT (BEAKER) (test code = 437) 1 % NEUTROPHILS ABSOLUTE COUNT (BEAKER) (test code = 670) 3.17 K/ L 1.78-5.38 LYMPHOCYTES ABSOLUTE COUNT (BEAKER) (test code = 414) 1.42 K/ L 1.32-3.57 MONOCYTES ABSOLUTE COUNT (BE RE) (test code = 415) 0.50 K/ L 0.30-0.82 EOSINOPHILS ABSOLUTE COUNT (BEAKER) (test code = 416) 0.19 K/ L 0.04-0.54 BASOPHILS ABSOLUTE COUNT (BE RE) (test code = 417) 0.03 K/ L 0.01-0.08 IMMATURE GRANULOCYTES-RELATI VE PERCENT (BEAKER) (test code = 2801) 0 % 0-1 BASIC METABOLIC [id number] 08:21:00* Test Item Value Reference Range Interpretation Comme nts SODIUM (BEAKER) (test code = 381) 138 meq/L 136-145 POTASSIUM (BEAKER) (test code = 379) 3.8 meq/L 3.5-5.1 CHLORIDE (BEAKER) (test code = 382) 103 meq/L 98-107 CO2 (BEAKER) (test code = 355) 28 meq/L 22-29 BLOOD UREA NITROGEN (BEAKER) (test code = 354) 17 mg/dL 7-21 CREATININE (BEAKER) (test code = 358) 1.10 mg/dL 0.57-1.25 GLUCOSE RANDOM (BEAKER) (test code = 652) 90 mg/dL 70-105 CALCIUM (BEAKER) (test code = 697) 8.8 mg/dL 8.4-10.2 EGFR (BEAKER) (test code = 1092) 65 mL/min/1.73 sq m ESTIMATED GFR IS NOT ACCURATE CREATININE CLEARANCE IN PREDICTING GLOMERULAR FILTRATION RATE. ESTIMATED GFR IS NOT APPLICABLE FOR DIALYSIS PATIENTS. Specimen slightly ictericPROTHROMBIN [id number] 08:13:00* Test Item Value Reference Range Interpretation Comme nts PROTIME (BEAKER) (test code = 759) 14.4 seconds 11.7-14.7 INR (BEAKER) (test code = 370) 1.1 <=5.9 RECOMMENDED COUMADIN/WARFARIN INR THERAPY RANGESSTANDARD DOSE: 2.0 - 3.0 Includes: PROPHYLAXIS for venous thrombosis, systemic embolization; TREATMENT for venous thrombosis and/or pulmonary embolus.HIGH RISK: Target INR is 2.5-3.5 for patients with mechanical heart valves.CBC W/PLT COUNT & AUTO DIFFERENTIAL 2017-07-19 08:04:00* Test Item Value Reference Range Interpretation Comme nts WHITE BLOOD CELL COUNT (BEAK ER) (test code = 775) 7.8 K/ L 3.5-10.5 RED BLOOD CELL COUNT (BEAKER ) (test code = 761) 4.56 M/ L 4.63-6.08 L HEMOGLOBIN (BEAKER) (test co de = 410) 14.4 GM/DL 13.7-17.5 HEMATOCRIT (BEAKER) (test co de = 411) 41.3 % 40.1-51.0 MEAN CORPUSCULAR VOLUME (DAISHA KER) (test code = 753) 90.6 fL 79.0-92.2 MEAN CORPUSCULAR HEMOGLOBIN (BEAKER) (test code = 751) 31.6 pg 25.7-32.2 MEAN CORPUSCULAR HEMOGLOBIN CONC (BEAKER) (test code = 752) 34.9 GM/DL 32.3-36.5 RED CELL DISTRIBUTION WIDTH (BEAKER) (test code = 412) 13.4 % 11.6-14.4 PLATELET COUNT (BEAKER) (bernardino t code = 756) 162 K/CU MM 150-450 MEAN PLATELET VOLUME (BEAKER ) (test code = 754) 9.8 fL 9.4-12.4 NUCLEATED RED BLOOD CELLS (BEAKER) (test code = 413) 0 /100 WBC 0-0 NEUTROPHILS RELATIVE PERCENT (BEAKER) (test code = 429) 70 % LYMPHOCYTES RELATIVE PERCENT (BEAKER) (test code = 430) 20 % MONOCYTES RELATIVE PERCENT (BEAKER) (test code = 431) 7 % EOSINOPHILS RELATIVE PERCENT (BEAKER) (test code = 432) 3 % BASOPHILS RELATIVE PERCENT (BEAKER) (test code = 437) 1 % NEUTROPHILS ABSOLUTE COUNT (BEAKER) (test code = 670) 5.44 K/ L 1.78-5.38 H LYMPHOCYTES ABSOLUTE COUNT (BEAKER) (test code = 414) 1.55 K/ L 1.32-3.57 MONOCYTES ABSOLUTE COUNT (BE RE) (test code = 415) 0.50 K/ L 0.30-0.82 EOSINOPHILS ABSOLUTE COUNT (BEAKER) (test code = 416) 0.19 K/ L 0.04-0.54 BASOPHILS ABSOLUTE COUNT (BE RE) (test code = 417) 0.04 K/ L 0.01-0.08 IMMATURE GRANULOCYTES-RELATI VE PERCENT (BEAKER) (test code = 2801) 0 % 0-1 Notes Date/Time Note Provider Source 2024-02-18 09:33:00 [facility] ([facility]) Hospitalist Discharge Summary REPORT#:[id number] REPORT STATUS: Signed REPORT INITIALIZATION DATE:02/18/24 TIME:932 PATIENT: FABIOLA MCKEON UNIT #: [id number] ROOM/BED: [place] [address] : 40 AGE: 83 SEX: M ATTEND: Joe Gavin MD ADM AUTHOR: Josr Pérez MD REPT SERVICE DT/TIME: 02/18/24932 * ALL edits or amendments must be made on the electronic/computer document * General Information Discharge date: 02/18/24 Discharge diagnosis: Coronary artery disease Hospital course: # Coronary artery disease Patient is s/p PCI to right coronary artery and mid LAD Patient is on double antiplatelet therapy Appreciate help from Cardiology #Hypertension Antihypertensives titrated Continue home medications #Hyperlipidemia Continue statin GI/DVT prophylaxis Advanced directive full code Dispo Patient seen at bedside with and want to be discharged Patient is cleared for discharge by consult 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 ASPIRIN (ASPIRIN) 81 MG TAB.CHEW 81 MILLIGRAM ORAL DAILY. Qty = 30 This prescription has been renewed Start taking the following new medications: CLOPIDOGREL (PLAVIX) 75 MG TAB 75 MILLIGRAM ORAL DAILY. Qty = 30 No Refills ATORVASTATIN (LIPITOR) 20 MG TAB 20 MILLIGRAM ORAL BEDTIME. Qty = 30 No Refills ACETAMINOPHEN (TYLENOL) 325 MG TAB 650 MILLIGRAM ORAL EVERY 4 HOURS NEEDED. as needed for MILD PAIN(SCORE 1- 3) /OR TEMP Qty = 60 No Refills Objective Free Text Obj Notes Free Text Obj Notes: General appearance: alert, awake, oriented HEENT : normocephalic ,Atraumatic Eyes: Eyes normal inspection. ENT: Dry mucous membranes present. Neck: Normal inspection. Neck supple. CVS: Normal heart rate and rhythm. Heart sounds normal. Respiratory: No respiratory distress. Breath sounds normal. Abdomen: Soft and nontender. Genitourinary: no bladder distention Back: Normal inspection. Skin: Skin warm. Normal skin color. No rash. Extremities: No lower extremity edema. Neuro: Oriented X 3. 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 Rate : 064 BPM Atrial Rate : 064 BPM P-R Int : 182 ms QRS Dur : 106 ms QT Int : 424 ms P-R-T Axes : 034 -37 007 degrees QTc Int : 437 ms Normal sinus rhythm Left axis deviation Low voltage QRS Cannot rule out Anterior infarct (cited on or before 17-FEB-2024) Abnormal ECG When compared with ECG of 17-FEB-2024 08:17, No significant change was found Confirmed by NOLAN BLACKBURN ([id number]) on 02/18/2024 8:15:04 AM Referred By: Nolan Blackburn Confirmed by:NOLAN BLACKBURN at 0815 PATIENT NAME: FABIOLA MCKEON [facility] 2024-02-17 18:49:00 [facility] Hospitalist History Physical REPORT#:[id number] REPORT STATUS: Signed REPORT INITIALIZATION DATE:02/17/24 TIME:1848 PATIENT: FABIOLA MCKEON UNIT #: [id number] ROOM/BED: [place] [address] : 40 AGE: 83 SEX: M ATTEND: Nolan Blackburn MD Cardiology ADM AUTHOR: Joe Gavin MD REPT SERVICE DT/TIME: 02/17/241848 * ALL edits or amendments must be made on the electronic/computer document * History of Present Illness HPI Chief complaint: S/p PCI HPI: 83 yo Male with past medical history of Hypertension , Hyperlipidemia , who had abnormal Stress test and angina who underwent PCI by Dr Blackburn and was admitted for post procedure monitoring . Denied any chest Pain or SOB . History Past Medical Surgical Hx Additional medical history: HTN,HLD, CAD Additional surgical history: Stent Family History Family history: Reports: Hypertension. Social History Smoking status for patients 13 years old or older: Former Smoker Date last smoked: 06/19/73 Medication/Allergy-Vaccine Hx Allergies: Coded Allergies: No Known Allergies (02/15/24) Review of Systems Free Text ROS Notes Free Text ROS Notes: Constitutional: Reports: generalized weakness. Skin: Denies: rash. Allergy/Immun: Denies: rhinorrhea, sneezing. Eyes: Denies: visual loss/blurred. ENT: Denies: earache, nasal congestion. Respiratory: Denies: non productive cough. Cardiovascular: Denies: chest pain, palpitations. GI: Denies: diarrhea, nausea. : Denies: dysuria. Musculoskeletal: Reports: arthritis. Denies: extremity pain. Heme: Denies: bleeding. Endocrine: Denies: polydipsia. Neuro: Reports: dizziness, gait problem, lightheaded, spinning sensation. Psych: Reports: anxiety. All systems rev neg: except as noted OBJECTIVE VS/I O: Vital Signs Date Temp Pulse Resp B/P B/P Mean Pulse Ox FiO2 02/16 97.6-98.7 46-64 14-38 118-156/58-79 87.3 94-99 Last Documented: Result Date Time Pulse Ox 94 02/16 1546 B/P 136/63 02/16 1546 B/P Mean 87.3 02/16 1546 O2 Delivery Room air 02/16 1546 Temp 97.9 02/16 1546 Pulse 63 02/16 1546 Resp 14 02/16 1546 24 hour I O ending at 0700: 02/16 0700 02/15 1900 Intake Total Output Total Balance Patient 200 lb Weight Weight Stated/Reported Measurement Method Patient Weight and BMI Weight (kg): 90.900 BMI: 27.2 Medications: Active Meds + DC'd Last 24 Hrs Atorvastatin Calcium (LIPITOR) 20 MG BEDTIME PO Aspirin (ECOTRIN) 81 MG DAILY PO Clopidogrel Bisulfate (Plavix) 75 MG DAILY PO Losartan Potassium (COZAAR) 100 MG DAILY PO Nitroglycerin (NITRO-BID) 1 INCH 0600,1200,1800 TRANSDERM Acetaminophen (TYLENOL) 650 MG Q4H PRN PRN PO Hydralazine HCl (APRESOLINE) 10 MG Q2H PRN PRN IV Hydrocodone Bitart/Acetaminophen (NORCO 5/325) 1 TAB Q4H PRN PRN PO Nitroglycerin (NITROSTAT) 0.4 MG Q5M PRN PRN SL Ondansetron HCl (ZOFRAN) 4 MG Q4H PRN PRN IV Sodium Chloride (0.9% Sodium Chloride) 1,000 ML .Q8H IV Midazolam HCl (VERSED) 0 .STK-MED ONE .ROUTE (DC) Hydralazine HCl (APRESOLINE) 0 .STK-MED ONE .ROUTE (DC) Iopamidol (ISOVUE-300) 0 .STK-MED ONE .ROUTE (DC) Aspirin (ASPIRIN) 0 .STK-MED ONE .ROUTE (DC) Clopidogrel Bisulfate (PLAVIX) 0 .STK-MED ONE .ROUTE (DC) Nitroglycerin (NITRO-BID) 0 .STK-MED ONE .ROUTE (DC) Midazolam HCl (VERSED) 0 .STK-MED ONE .ROUTE (DC) Fentanyl Citrate (SUBLIMAZE) 0 .STK-MED ONE .ROUTE (DC) Heparin Sodium (Porcine) (HEPARIN SODIUM) 0 .STK-MED ONE .ROUTE (DC) Heparin Sodium (Porcine) (HEPARIN 1,000 UNITS/NS 500 ML) 1,500 ML .STK-MED ONE IV (DC) Iopamidol (ISOVUE-300) 0 .STK-MED ONE .ROUTE (DC) Diazepam (VALIUM) 5 MG ONCE ONE PO (DC) Diphenhydramine HCl (BENADRYL) 25 MG ONCE ONE PO (DC) Sodium Chloride (0.9% Sodium Chloride) 1,000 ML ASDIR IV Physical Exam General appearance: alert, awake, oriented HEENT : normocephalic ,Atraumatic Eyes: Eyes normal inspection. ENT: Dry mucous membranes present. Neck: Normal inspection. Neck supple. CVS: Normal heart rate and rhythm. Heart sounds normal. Respiratory: No respiratory distress. Breath sounds normal. Abdomen: Soft and nontender. Genitourinary: no bladder distention Back: Normal inspection. Skin: Skin warm. Normal skin color. No rash. Extremities: No lower extremity edema. Neuro: Oriented X 3. No motor deficit No generalized lymph adenopathy Psych normal affect Results Findings/Data: Laboratory Tests: 02/16 02/16 02/16 0733 0640 0510 Chemistry Sodium (136 - 145 mmol/L) 140 Potassium (3.4 - 5.0 mmol/L) 4.0 Chloride (98 - 107 mmol/L) 103 Carbon Dioxide (21 - 32 mmol/L) 28 Anion Gap (4 - 15 GAP calc) 9 BUN (7 - 18 MG/DL) 17 Creatinine (0.6 - 1.0 MG/DL) 1.3 H Glomerular Filtr Rate (>60 estGFR) 55 L Glucose (70 - 110 MG/DL) 114 H Calcium (8.5 - 10.1 MG/DL) 8.8 Magnesium (1.8 - 2.4 MG/DL) 2.1 Total Bilirubin (0.0 - 1.0 MG/DL) 0.6 AST (15 - 37 Unit/L) 18 ALT (30 - 65 Unit/L) 27 L Total Alk Phosphatase (50 - 136 Unit/L) 71 Total Protein (6.4 - 8.2 G/DL) 7.3 Albumin (3.4 - 5.0 G/DL) 3.8 Globulin (GM/dL) 3.5 Albumin/Globulin Ratio (1.2 - 2.2 RATIO) 1.1 L Triglycerides (0 - 150 MG/DL) 193 H Cholesterol (133 - 200 MG/DL) 192 LDL Cholesterol Measurd (0 - 129 MG/DL) 98 Non-HDL Cholesterol (<130 mg/dL) 134 H HDL Cholesterol (60 MG/DL) 58 L LDL/HDL Ratio (1.48 - 3.22 Avg Ratio) 1.68 Cholesterol/HDL Ratio (0 RATIO) 3.31 Coagulation INR (0.8 - 1.2 INR Unit) 1.00 PTT (Emily) (26 - 35 SECONDS) 35.2 H PT Patient/Control Mix (9.3 - 12.9 SECONDS) 11.2 Activated Coag Time (110 - 182 SEC) 276 H 236 H Hematology WBC (3.5 - 11.0 K/mm3) 4.9 RBC (4.70 - 6.10 M/mm3) 4.29 L Hgb (12.3 - 15.9 G/DL) 13.5 Hct (35.8 - 46.7 %) 39.0 MCV (86.3 - 98.9 Fl) 90.9 MCH (28.9 - 34.4 pg) 31.5 MCHC (32.1 - 34.5 G/DL) 34.6 H RDW (11.5 - 14.5 SD) 13.1 Plt Count (150 - 450 K/mm3) 128 L MPV (7.0 - 9.6 fL) 9.10 Neut % (Auto) (40 - 76 %) 49.1 Lymph % (Auto) (20.5 - 51.1 %) 32.6 Glenn % (Auto) (1.7 - 9.3 %) 11.4 H Eos % (Auto) (0.0 - 6.0 %) 5.7 Baso % (Auto) (0.0 - 2.0 %) 1.0 Neut # (Auto) (1.8 - 7.6 K/mm3) 2.4 Lymph # (Auto) (0.6 - 3.0 K/mm3) 1.6 Glenn # (Auto) (0.2 - 1.5 K/mm3) 0.6 Eos # (Auto) (0.0 - 0.4 K/mm3) 0.3 Baso # (Auto) (0.0 - 0.2 K/mm3) 0.1 Abs Immat Gran (auto) (0.00 - 0.03 x10 3/uL) 0.01 Immature Gran % (0.0 - 5.0 %) 0.2 Nucleated RBC % (0.0 - 1.0 /100WBC%) 0.0 Laboratory Tests 02/17/24 0541: [Embedded Image Not Available] Diagnosis, Assessment Plan Free Text A P: CAD status post PCI PCI to right coronary artery and mid LAD Continue double antiplatelet therapy Appreciate help from Cardiology Hypertension Antihypertensives titrated Continue home medications and titrate as needed Hyperlipidemia Continue statin GI/DVT prophylaxis Advanced directive full code at 1856 RPT #: [id number] END OF REPORT [facility] 2024-02-17 08:17:00 [id number] [facility] [id number] [place] [id number] PATIENT NAME: FABIOLA MCKEON ADMIT DATE: 02/17/24 ACCOUNT NO: [id number] ROOM NO: [place] AGE: 83 REPORT TYPE: eELECTROCARDIOGRAM SEX: M ADMITTING PHYSICIAN: Joe Gavin MD ATTENDING PHYSICIAN: Nolan Blackburn MD Order: [id number] Test Reason : POST PCI Test Date/Time Stamp: [facility] Feb 17 2024 08:17:05 Blood Pressure : / mmHG Vent. Rate : 065 BPM Atrial Rate : 065 BPM P-R Int : 184 ms QRS Dur : 108 ms QT Int : 450 ms P-R-T Axes : 048 -26 -14 degrees QTc Int : 468 ms Normal sinus rhythm Cannot rule out Anterior infarct , age undetermined Abnormal ECG When compared with ECG of 17-FEB-2024 05:52, QT has lengthened Confirmed by NOLAN BLACKBURN ([id number]) on 02/17/2024 11:42:10 AM Referred By: Nolan Blackburn Confirmed by:NOLAN BLACKBURN at 1142 PATIENT NAME: FABIOLA MCKEON [facility] 2024-02-17 08:06:00 [phone] [address] PATIENT NAME: FABIOLA MCKEON ADMIT DATE: 02/17/24 ACCOUNT NO: [id number] ROOM NO: [facility] AGE: 83 REPORT TYPE: CARDIAC CATHETERIZATION REPORT SEX: M ADMITTING PHYSICIAN: Joe Gavin MD ATTENDING PHYSICIAN: Nolan Blackburn MD PROCEDURE DATE: 02/17/2024 NETWORK ENGINEERING ADVISOR: Nolan Blackburn MD FLIGHT SURVEYOR: PREOPERATIVE DIAGNOSIS: POSTOPERATIVE DIAGNOSIS: INDICATIONS FOR THE PROCEDURE: Angina, coronary artery disease, ischemia. TITLES OF PROCEDURES: 1. Left heart catheterization. 2. Drug-eluting stent of the mid and distal right coronary artery. 3. Drug-eluting stent of the LAD mid. 4. Sealing device. ESTIMATED BLOOD LOSS: Minimal. COMPLICATIONS: None. CONTRAST: 100 mL. ANESTHESIA: Conscious sedation with Versed and fentanyl and 1% lidocaine for local anesthesia. FINAL DIAGNOSES: Heavily calcified arteries, tortuous aorta, 2-vessel coronary artery disease, elevated left ventricular end-diastolic pressure. The patient is now status post drug-eluting stents, two of them in the mid RCA, one in the distal RCA, and one in the mid LAD. RECOMMENDATIONS: Aggressive medical therapy and risk factor modification. PROCEDURE IN DETAIL: After informed consent, the patient was brought to the cardiac catheterization lab in a stable fasting nonsedated state. He was prepped and draped in the usual sterile fashion. After conscious sedation, 1% lidocaine was administered to the right common femoral artery area for local anesthesia. A 6-Uruguayan sheath was placed in the right common femoral artery using standard techniques and fluoroscopy. After heparinization, the aorta was tortuous. The arteries were heavily calcified. The left main had 30% plaque proximal. Circumflex had a small ramus 40% disease, small obtuse marginal 1 with PATIENT NAME: FABIOLA MCKEON 40% disease. LAD is a large vessel with 35% proximal, 40% mid, and is followed by [id number] 80% lesion that is focal. Then the LAD gives collaterals to the right. Right coronary angiogram showed a heavily calcified vessel with a tight lesion in the mid 99% and a suspected distal lesion right before the bifurcation 99%. DAXA flow in the RCA was 2 after the mid lesion and 1 after the distal lesion. DAXA flow in the LAD was 3. Decided to work on the right coronary artery first. Before that, left ventricular angiogram showed ejection fraction of 50% to 55%, left ventricular end-diastolic pressure of 24, no significant aortic valve gradient or wall motion abnormalities. So, for the right coronary, the first guide used was a JR4 that did not sit well. Then, I used a 3DRC 6-Uruguayan guide, tried to balloon with a Sapphire 2.5 x 12, I could not cross the lesion. So, I used a Sprinter Legend RX 1.5 x 12, then a 2.0 x 15. Then, I found out that I needed to use a GuideLiner to assist me in crossing with bigger balloons. I could not pass the stent, so I had to use the 3.0 x 15 Sprinter Legend to predilate. Then, I was able to pass the first stent, which was applied to the mid lesion, the distal end with 3.0 x 24, and then put another stent proximal to that 3.0 x 12 that resulted in a 0% residual and good apposition of the stent. Later on, at the end of the procedure on the right, I did an NC 3.5 x 20 to post-dilate the stented area. We got DAXA 3 flow from the RCA mid and then I was able to visualize the distal lesion better, which is 99% with DAXA 1 flow distal. So, I did primary stenting to that with a 3.0 x 12 [employer] Synergy at 16 atmospheres that resulted in 0 residual and DAXA 3 flow. Then, went to the LAD, did a guide, this is 6-Uruguayan XB 3.5 and used the same wire and primary stented the lesion with a 2.75 x 16 at 16 atmospheres resulting in 0% residual, the DAXA 3 flow before and after. The right groin was sealed using Angio-Seal. There were no complications. The patient tolerated the procedure well. He was transferred to the holding area for observation, and then he will be admitted for observation overnight. He will be started on statin therapy and he was already given antiplatelet therapy and he will be hydrated for his renal insufficiency. Dictated By: Nolan Blackburn MD Date Dictated: 02/17/2024 08:06:59 Date Transcribed: 02/17/2024 08:56:31 TANIA/SILVER/FARRUKH Receipt ID: [id number] Authenticated by Nolan Blackburn MD On 02/17/2024 01:03:39 PM at 0103 PATIENT NAME: FABIOLA MCKEON [facility] 2024-02-17 05:52:00 [id number] [address] PATIENT NAME: FABIOLA MCKEON ADMIT DATE: 02/17/24 ACCOUNT NO: [id number] ROOM NO: [facility] AGE: 83 REPORT TYPE: eELECTROCARDIOGRAM SEX: M ADMITTING PHYSICIAN: Joe Gavin MD ATTENDING PHYSICIAN: Nolan Blackburn MD Order: [id number] Test Reason : PRE CATH Test Date/Time Stamp: Sat Feb 17 2024 05:52:14 Blood Pressure : / mmHG Vent. Rate : 046 BPM Atrial Rate : 046 BPM P-R Int : 198 ms QRS Dur : 110 ms QT Int : 470 ms P-R-T Axes : 032 -33 -09 degrees QTc Int : 411 ms Sinus bradycardia Left axis deviation Abnormal ECG No previous ECGs available Confirmed by NOLAN BLACKBURN ([id number]) on 02/17/2024 8:17:01 AM Referred By: Nolan Blackburn Confirmed by:NOLAN BLACKBURN at 0817 PATIENT NAME: FABIOLA MCKEON [facility] 2024-02-16 07:18:00 [phone] [facility] [address] [place] [address] PATIENT NAME: FABIOLA MCKEON ADMIT DATE: ACCOUNT NO: [id number] ROOM NO: AGE: 83 REPORT TYPE: HISTORY AND PHYSICAL SEX: M ADMITTING PHYSICIAN: ATTENDING PHYSICIAN: Nolan Blackburn MD Cardiology PATIENT NAME: FABIOLA MCKEON ADMIT DATE:02/17/2024 ADMISSION DATE: 02/17/2024 07:00:00 ADMISSION HISTORY AND PHYSICAL DATE OF PLANNED PROCEDURE: 02/17/2024. NETWORK ENGINEERING ADVISOR: Nolan Blackburn MD. REASON FOR ADMISSION: Angina, abnormal nuclear stress test with significant ischemia for cardiac catheterization and possible revascularization. HISTORY OF PRESENT ILLNESS: Fabiola is an 83-year-old patient, who was recently evaluated for angina, dyspnea, multiple cardiovascular risk factors. The patient had an abnormal baseline EKG with PVCs, has had an echo with hypertensive changes, ybhfojln-xg-kigukp mitral regurgitation from mitral valve prolapse, oukj-kx-pnqzopyf aortic insufficiency, normal ejection fraction, mild pulmonary hypertension. He had a nuclear stress test at 6 minutes, was strongly positive for severe inferoposterior ischemia, ejection fraction 54%. The patient's mitral regurgitation has also been getting worse and was followed up regularly over the years. The patient has also history of sick sinus syndrome and he has been followed up regularly for that. Heart rates going down to 33 at night with several pauses that are short. The patient does not meet pacemaker criteria at this time and ischemia could be a factor and worsening sick sinus syndrome in this patient. Given the symptoms and the nuclear findings, the patient is here for left heart catheterization to assess for revascularization. The patient is a Hinduism, so he understands the risks and benefits of the planned procedure. PAST MEDICAL HISTORY: Remarkable for hypertension. He denies a history of hyperlipidemia. He has history of gastroesophageal reflux disease, hearing loss, benign prostatic hyperplasia, lumbar disk disease, skin cancer, squamous cell, chronic renal insufficiency, and allergies. PAST SURGICAL HISTORY: He has had varicose veins on the left leg, hernia surgery in the past, cholecystectomy and tooth pulled in 08/2022. ALLERGIES: NO KNOWN DRUG ALLERGIES. MEDICATIONS: Aspirin 81 mg daily, magnesium upqh-mlw-ywwfzmy, Centrum Men, losartan 50 mg daily. PATIENT NAME: FABIOLA MCKEON SOCIAL HISTORY: There is no history of any recent smoking. There is no history of significant alcohol use. There is no history of street drug use. REVIEW OF SYSTEMS: Remarkable for the above in addition to headaches, allergies. He has blindness in the right eye, decreased hearing, above-mentioned cardiovascular symptoms, difficulty balancing, memory loss. No acute GI or symptoms. No TIAs or strokes. PHYSICAL EXAMINATION: GENERAL: Reveals a pleasant 83-year-old patient in no acute distress. VITAL SIGNS: Blood pressure 150/80, pulse is 46 and regular, respiratory rate 16 and unlabored, temperature afebrile. HEENT: Head atraumatic, normocephalic. Eyes and ENT examination within normal for age. NECK: Supple, no jugular venous distention, bruits or lymphadenopathy. Normal upstroke. LUNGS: Clear and resonant. HEART: Regular rate and rhythm, bradycardic, III/ systolic and II/ diastolic murmurs at the mitral and aortic area respectively. No gallops. ABDOMEN: Soft, no tenderness, no organomegaly, no masses or bruits. EXTREMITIES: 1+ distal pulses. No edema, cyanosis or clubbing. NEUROLOGIC: Alert and oriented x3. Examination appears to be nonfocal. LABORATORY DATA: Pending. Noninvasive cardiovascular workup discussed above. In addition, the patient has also peripheral arterial disease symptoms with mildly abnormal arterial Doppler with the right ankle brachial index of 0.78 and the left of 0.72. He had the recent echo and nuclear described above. He has not had a carotid Doppler since he has denied hyperlipidemia history and he has not been having much symptoms. IMPRESSION AND PLAN: The patient is here with angina, abnormal nuclear stress test, multiple cardiovascular risk factors. He has also sick sinus syndrome and he has peripheral arterial disease. The patient is here for left heart catheterization to assess his coronaries for possible revascularization. The patient is Hinduism, so he understands the risks and benefits of the planned procedures. The recommendation is to proceed with the above-mentioned procedures. The risks and benefits of the planned procedures were discussed in detail with the patient and available family members, and he is willing to proceed. Rest as per orders. His lipids will be checked and treated, and if the mitral regurgitation appears to be significant on the left ventricular angiogram, then a right heart catheterization will be added. Dictated By: Nolan Blackburn MD Date Dictated: 02/16/2024 07:18:48 Date Transcribed: 02/16/2024 10:15:43 TANIA/SILVER/SHANELL/RACHEL Receipt ID: [id number] Authenticated and Edited by Nolan Blackburn MD On 02/16/24 4:10:50 PM PATIENT NAME: FABIOLA MCKEON at 0413 PATIENT NAME: FABIOLA MCKEON [facility]
[2025-01-23] MEDS ORDERED: GLUCAGON 1 MG/VIAL ONE (15:42)
[2025-01-23 15:45] LABS: Absolute Lymphocytes (CBC) 1.1 K/uL (0.7-4.9); Hematocrit 42.6 % (39.6-49.0); Hemoglobin 14.9 g/dL (13.6-17.9); MCH 31.6 pg (27.0-35.0); MCHC 35.0 g/dL (32.0-36.0); MCV 90.3 fL (80-100); MPV 7.2 fL (7.6-11.3); Nucleated RBC Absolute Count 0.0 (0-0); Nucleated Red Blood Cells % 0.5 % (0-0); RBC Red Blood Cell Count 4.72 M/uL (4.33-5.43); White Blood Count 5.40 thou/uL (4.3-10.9)
[2025-01-23 15:54] LABS: PT Prothrombin Time 11.8 SECONDS (10-13.0); Protime INR 1.05
[2025-01-23 16:06] LABS: ALT/SGPT 32.0 U/L (16-61); AST/SGOT 22.0 U/L (15-37); Albumin 3.9 g/dL (3.4-5.0); Albumin/Globulin Ratio 1.1 (1.1-1.8); Alkaline Phosphatase 52.0 U/L (45-117); Anion Gap 9.6 mEq/L (5.0-15.0); BUN Blood Urea Nitrogen 16.0 mg/dL (7-18); Bilirubin Indirect, Calculated 0.9 mg/dL (0.2-0.8); Globulin 3.4 g/dL (2.3-3.5); Glucose Level 115.0 mg/dL (74-106); Magnesium 2.3 mg/dL (1.6-2.4); Potassium 4.6 mEq/L (3.5-5.1); Troponin High Sensitivity 19.5 pg/mL (<58.9)
--- NOTE | 2025-01-23 16:14 | ER ---
Nurse's Notes [facility] Name: Xavier Yates Age: 84 yrs Sex: Male : 1940 Arrival Date: 01/23/2025 Time: 14:49 Bed 7 Private MD: Diagnosis: Esophageal food impaction Presentation: 01/23 15:09 Chief complaint: Patient states: about 10am patient took his vitamin and feels like me1 it's stuck in his throat. Unable to drink as he vomits after a sip of water. Pain level 3/10. Coronavirus screen: Vaccine status: Patient reports receiving the 2nd dose of the covid vaccine. Ebola Screen: No symptoms or risks identified at this time. Initial Sepsis Screen: Does the patient meet any 2 criteria? No. Patient's initial sepsis screen is negative. Does the patient have a suspected source of infection? No. Patient's initial sepsis screen is negative. Risk Assessment: Do you want to hurt yourself or someone else? Patient reports no desire to harm self or others. Onset of symptoms was January 23, 2025 at 10:00. 15:09 Method Of Arrival: Ambulatory me1 15:09 Acuity: MATTHEW 3 me1 Historical: - Allergies: 15:11 No Known Allergies; me1 - PMHx: 15:11 blind right eye; HARD OF HEARING; Hypertensive disorder; me1 - PSHx: 15:11 Cholecystectomy; me1 15:11 Coronary Angioplasty; me1 - Immunization history:: Adult Immunizations up to date. - Infectious Disease History:: Denies. - Social history:: Smoking status: Patient/guardian denies using tobacco, but has a distant history of tobacco abuse. Screenin:18 [facility] ED Fall Risk Assessment (Adult) History of falling in the last 3 months, db including since admission No falls in past 3 months (0 pts) Confusion or Disorientation No (0 pts) Intoxicated or Sedated No (0 pts) Impaired Gait No (0 pts) Mobility Assist Device Used No (0 pt) Altered Elimination No (0 pt) Score/Fall Risk Level 0 - 2 = Low Risk Oriented to surroundings, Maintained a safe environment. Abuse screen: Denies threats or abuse. Denies injuries from another. Nutritional screening: No deficits noted. Tuberculosis screening: No symptoms or risk factors identified. Assessment: 15:30 Reassessment: PT PROVIDED SMALL SIP OF SODA. db 16:00 Reassessment: Patient appears in no apparent distress at this time. Patient and/or db family updated on plan of care and expected duration. Pain level reassessed. Patient is alert, oriented x 3, equal unlabored respirations, skin warm/dry/pink. Neuro: Level of Consciousness is awake, alert, obeys commands, Oriented to person, place, time, situation. 17:00 Reassessment: Patient appears in no apparent distress at this time. Patient and/or db family updated on plan of care and expected duration. Pain level reassessed. Patient is alert, oriented x 3, equal unlabored respirations, skin warm/dry/pink. PT REPORTS GLUCAGON DID NOT WORK. SPITTING UP IN EMESIS BAG. General: Appears in no apparent distress. comfortable, Behavior is calm, cooperative. 17:21 Pain: Denies pain. Respiratory: Airway is patent Respiratory effort is even, unlabored, db Respiratory pattern is regular, symmetrical. EENT: Reports difficulty swallowing since 1030 TODAY. 17:28 Reassessment: CALLED TO GIVEN PT REPORT TO [facility]. PHONE DISCONNECTED. db 17:32 Reassessment: CALLED TO GIVE PT REPORT TO [facility] [facility] TO [facility]GE [facility]ANK[facility]. db 18:07 Reassessment: Patient appears in no apparent distress at this time. Patient and/or db family updated on plan of care and expected duration. Pain level reassessed. Patient is alert, oriented x 3, equal unlabored respirations, skin warm/dry/pink. EMS ARRIVAL FOR PT TRANSPORT. Vital Signs: 15:09 BP 153 / 77; Pulse 59; Resp 17; Temp 98.3; Pulse Ox 96% ; Weight 92.99 kg; Height 6 ft. me1 0 in. ; Pain 3/10; 16:00 BP 130 / 70; Pulse 59; Resp 18 S; Pulse Ox 93% on R/A; ar8 17:00 BP 120 / 81; Pulse 57; Resp 16; Pulse Ox 100% ; db 17:34 BP 141 / 78; Pulse 58; Resp 18; Pulse Ox 100% on R/A; ph 15:09 Body Mass Index 27.80 (92.99 kg, 182.88 cm) me1 15:09 Pain Scale: Adult ct1 ED Course: 14:52 Patient arrived in ED. mr 15:00 Mcmillan, Setul, MD is Attending Physician. sp3 15:11 Triage completed. me1 15:11 Arm band placed on Patient placed in an exam room. me1 15:25 Amy Richard, RN is Primary Nurse. db 15:26 Inserted saline lock: 20 gauge in right antecubital area, using aseptic technique. db Blood collected. Flushed with 10 mL NS. 15:52 XRAY Chest (1 view) In Process Unspecified. EDMS 16:22 initiated transfer with Miky at the [facility] transfer center. 6 17:17 received acceptance with Miky for DR Wendy Ley at [facility]. 6 17:40 [facility] accepted transfer. 6 18:08 Patient has correct armband on for positive identification. Bed in low position. Call db light in reach. Side rails up X 1. Provided Education on: TRANSFER. Pulse ox on. NIBP on. Pillow given. 18:08 No provider procedures requiring assistance completed. Patient transferred, IV remains db in place. Administered Medications: 15:40 Drug: Glucagon IVP 1 mg IVP once Route: IVP; Site: right antecubital; db 18:10 Follow up: Response: No adverse reaction db Medication: 17:21 VIS not applicable for this client. db Outcome: 16:14 ER care complete, transfer ordered by . sp3 18:08 Transferred by ground EMS to [facility], Transfer form completed. db X-rays sent w/ patient. Note: [facility] 18:08 Condition: stable 18:08 Instructed on the need for transfer, 18:10 Patient left the ED. db Signatures: Dispatcher [employer] EDND Neena Caldera, Reg Reg mr PattonGabrielle, RN RN Yocasta Mcmillan MD MD sp3 Amy Richard, RN RN db Lucy Mchugh [facility] Rachele Olmstead, RN RN ct1 Phan Moreno, RN RN ar8 Corrections: (The following items were deleted from the chart) 17:32 17:28 Reassessment: CALLED TO GIVEN PT REPORT TO [facility] db
--- NOTE | 2025-01-23 16:14 | EDPHYS ---
Physician Documentation [facility] Name: Xavier Yates Age: 84 yrs Sex: Male : 1940 Arrival Date: 01/23/2025 Time: 14:49 Bed 7 Private MD: ED Physician Yocasta Mcmillan HPI: 01/23 15:55 This 84 yrs old Male presents to ER via Ambulatory with complaints of Foreign Body In sp3 Throat. 15:55 84-year-old male with history of hypertension presents to the ED with large vitamin sp3 pill "stuck in his esophagus" for several hours. Patient states he cannot tolerate his own secretions and any water he tries comes right back up. Is causing him some chest discomfort as well. No prior history of esophageal stricture or similar episode. ROS otherwise negative.. 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 - Infectious Disease History:: Denies. - Social history:: Smoking status: Patient/guardian denies using tobacco, but has a distant history of tobacco abuse. ROS: 15:58 Constitutional: Negative for fever, chills, and weight loss, Eyes: Negative for injury, sp3 pain, redness, and discharge, Neck: Negative for injury, pain, and swelling, Back: Negative for injury and pain, : Negative for injury, bleeding, discharge, and swelling, MS/Extremity: Negative for injury and deformity, Skin: Negative for injury, rash, and discoloration, Neuro: Negative for headache, weakness, numbness, tingling, and seizure, Psych: Negative for depression, anxiety, suicide ideation, homicidal ideation, and hallucinations, Allergy/Immunology: Negative for hives, rash, and allergies, Endocrine: Negative for neck swelling, polydipsia, polyuria, polyphagia, and marked weight changes, Hematologic/Lymphatic: Negative for swollen nodes, abnormal bleeding, and unusual bruising, 15:58 All other systems are negative, Exam: 15:58 Constitutional: This is a well developed, well nourished patient who is awake, alert, sp3 and in no acute distress. Head/Face: Normocephalic, atraumatic. Eyes: Pupils equal round and reactive to light, extra-ocular motions intact. Lids and lashes normal. Conjunctiva and sclera are non-icteric and not injected. Cornea within normal limits. Periorbital areas with no swelling, redness, or edema. Neck: Trachea midline, no thyromegaly or masses palpated, and no cervical lymphadenopathy. Supple, full range of motion without nuchal rigidity, or vertebral point tenderness. No Meningismus. Chest/axilla: Normal chest wall appearance and motion. Nontender with no deformity. No lesions are appreciated. Cardiovascular: Regular rate and rhythm with a normal S1 and S2. No gallops, murmurs, or rubs. Normal PMI, no JVD. No pulse deficits. Respiratory: Lungs have equal breath sounds bilaterally, clear to auscultation and percussion. No rales, rhonchi or wheezes noted. No increased work of breathing, no retractions or nasal flaring. Abdomen/GI: Soft, non-tender, with normal bowel sounds. No distension or tympany. No guarding or rebound. No evidence of tenderness throughout. Back: No spinal tenderness. No costovertebral tenderness. Full range of motion. Skin: Warm, dry with normal turgor. Normal color with no rashes, no lesions, and no evidence of cellulitis. MS/ Extremity: Pulses equal, no cyanosis. Neurovascular intact. Full, normal range of motion. Neuro: Awake and alert, GCS 15, oriented to person, place, time, and situation. Cranial nerves II-XII grossly intact. Motor strength 5/5 in all extremities. Sensory grossly intact. Cerebellar exam normal. Normal gait. Psych: Awake, alert, with orientation to person, place and time. Behavior, mood, and affect are within normal limits. 15:58 Abdomen/GI: Exam patient does try to drink it comes back up. Vital signs are normal., 16:22 ECG was reviewed by the Attending Physician. EKG demonstrates normal sinus rhythm at 60 sp3 bpm with normal intervals, incomplete left bundle, leftward axis and nonspecific diffuse ST/T changes without evidence of acute ischemia. Vital Signs: 15:09 BP 153 / 77; Pulse 59; Resp 17; Temp 98.3; Pulse Ox 96% ; Weight 92.99 kg; Height 6 ft. me1 0 in. ; Pain 3/10; 16:00 BP 130 / 70; Pulse 59; Resp 18 S; Pulse Ox 93% on R/A; ar8 17:00 BP 120 / 81; Pulse 57; Resp 16; Pulse Ox 100% ; db 17:34 BP 141 / 78; Pulse 58; Resp 18; Pulse Ox 100% on R/A; ph 15:09 Body Mass Index 27.80 (92.99 kg, 182.88 cm) me1 15:09 Pain Scale: Adult me1 MDM: 15:20 Medical Screening Exam initiated sp3 15:58 Data reviewed: vital signs, nurses notes, lab test result(s), EKG, radiologic studies. 3 ED course: 84-year-old male with chest pain from probable food bolus in esophagus. Differential diagnosis includes food bolus, esophageal irritation, esophageal trauma, and to lesser degree ACS or other intrathoracic process. Will obtain chest x-ray, EKG and general labs. Also we will try with Sprite to see if that makes a difference with the carbonation. Also glucagon 1 mg IV given. If no resolution, we will transfer for GI evaluation.. 16:14 ED course: Patient not tolerating p.o. still after interventions. We will transfer to [address] or [facility] for GI evaluation.. 08 15:31 Order name: Basic Metabolic Panel; Complete Time: 16:07 [facility] 01/23 15:31 Order name: CBC with Diff; Complete Time: 16:07 [facility] 01/23 15:31 Order name: LFT's; Complete Time: 16:07 [facility] 01/23 15:31 Order name: Magnesium; Complete Time: 16:07 [facility] 01/23 15:31 Order name: PT-INR; Complete Time: 16:07 [facility] 01/23 15:31 Order name: Troponin HS; Complete Time: 16:07 [facility] 01/23 15:31 Order name: XRAY Chest (1 view); Complete Time: 16:38 [facility] 01/23 15:31 Order name: EKG; Complete Time: 15:31 [facility] 01/23 15:31 Order name: Cardiac monitoring; Complete Time: 15:50 [facility] 01/23 15:31 Order name: EKG - Nurse/Tech; Complete Time: 15:48 [facility] 01/23 15:31 Order name: IV Saline Lock; Complete Time: 15:35 sp3 01/23 15:31 Order name: Labs collected and sent; Complete Time: 15:35 sp3 01/23 15:31 Order name: O2 Per Protocol; Complete Time: 15:35 sp3 01/23 15:31 Order name: O2 Sat Monitoring; Complete Time: 15:35 sp3 01/23 15:31 Order name: Accucheck; Complete Time: 15:50 sp3 Administered Medications: 15:40 Drug: Glucagon IVP 1 mg IVP once Route: IVP; Site: right antecubital; db 18:10 Follow up: Response: No adverse reaction db Disposition Summary: 01/23/25 16:14 Transfer Ordered Notes: Transfer Location: [facility] sp3 Reason: Higher level of care sp3 Condition: Stable sp3 Problem: new sp3 Symptoms: have worsened sp3 Accepting Physician: Hospitalist and GI consultation Claudette Dennis(01/23/25 18:10) db Diagnosis - Esophageal food impaction sp3 Forms: - Medication Reconciliation Form sp3 - SBAR form sp3 Signatures: Dispatcher [employer] EDYocasta Powers MD MD sp3 Amy Richard, RN RN db Rachele Olmstead, JOANIE RN me1 Corrections: (The following items were deleted from the chart) 18:10 16:14 Hospitalist and GI consultation Claudette Dennis sp3 db
--- NOTE | 2025-01-23 16:31 | RAD REPORT ---
EXAMINATION: ONE VIEW CHEST XR CLINICAL INDICATION: Male, 84 years old.,FB esophagus sensation;Chest pain TECHNIQUE: Frontal chest projection is submitted. Examination is limited by patient positioning and t echnique. COMPARISON: 09/11/2023. FINDINGS: The lungs are well inflated and clear. No pneumothorax or sizable effusion. The heart is normal in s ize. Mediastinal contours are unremarkable. IMPRESSION: No acute intrathoracic abnormalities.
[2025-01-23 18:24] VITALS: TEMP 98.3
[2025-01-23 18:29] VITALS: O2SAT 100
[2025-01-23 18:31] VITALS: BP 141/78
== END 2025-01-23 18:10 | disposition short-term general hospital (02) ==
LOC: ER 14:49
DX: T18.128A Food in esophagus causing other injury, initial encounter (principal)
CPT/HCPCS: 93005; 85025; 80048; 36415; 83735; 85610; 80076; 84484; 71045; 96374; 99285; J1610